=== PATIENT | male | born 1970 | race Caucasian/White ===

== ENCOUNTER 2022-08-16 21:27 | Emergency (ER) | payer OTHER ==
--- NOTE | 2022-08-16 21:53 | NUR ---
PATIENT DOESNT WANT TO WAIT, HE WENT HOME.PATIENT LEFT WITHOUT BEING SEEN BY DR. DONALDSON. NO FURTHER CARE PROVIDED FOR PATIENT.
== END 2022-08-16 21:53 | disposition left against medical advice (07) ==
LOC: MED 21:27
DX: R21 Rash and other nonspecific skin eruption (principal); Z53.21 Procedure and treatment not carried out due to patient leaving prior to being seen by health care provider